=== PATIENT | female | born 1950 | race Caucasian/White ===

== ENCOUNTER 2016-10-14 19:17 | Emergency (ER) | payer OTHER, MEDICARE ==
[~2016-10-14] VITALS: Ht 172.7 cm; Wt 129.3 kg
[~2016-10-14 19:17] MED LIST: ENOXAPARIN30 MG/0.3 SC; LEVOTHYROXIN0.175 MG PO; MASON NATURAL325 MG PO; METOPROLOL SUCC50 MG PO; MULTIVITAMIN1 TA1 PO; OMEGA 31000 MG PO; OXYCODONE5 MG PO; OXYCONTIN30 MG PO; SENNA PLUS 50 M1 TAB PO; TIZANIDINE HCL4 MG PO; TIZANIDINE4 MG; TYLENOL325 MG PO; ZOFRAN ODT4 MG PO
[2016-10-14 19:48] VITALS: BP 159/87
[2016-10-14 20:21] LABS: ABSOLUTE BASOPHIL COUNT 0.1 /CUMM (0.0-0.2); ABSOLUTE EOSINOPHIL COUNT 0.1 /CUMM (0.0-0.7); ABSOLUTE GRANULOCYTE CT 5.9 /CUMM (1.4-6.5); ABSOLUTE LYMPH COUNT 2.5 /CUMM (1.2-3.4); ABSOLUTE MONOCYTE COUNT 0.7 /CUMM (0.10-0.60); BASOPHIL % 0.7 % (0.0-2.0); EOSINOPHIL % 1.5 % (0-5); GRANULOCYTE % 63.3 % (42.2-75.2); HEMATOCRIT 40.7 % (37-47); MEAN CORPUSCULAR HGB 26.5 PG (27.0-31.0); MEAN CORPUSCULAR HGB CONC 32.4 G/DL (33.0-37.0); MEAN CORPUSCULAR VOLUME 81.9 FL (81.0-99.0); MEAN PLATELET VOLUME 8.8 FL (7.4-10.4); PLATELET COUNT 292 /CUMM (130-400); RBC DISTRIBUTION WIDTH 15.6 % (11.5-14.5); RED BLOOD CELL CT 4.97 /CUMM (4.20-5.40); WHITE BLOOD CELL COUNT 9.3 /CUMM (4.8-10.8)
--- NOTE | 2016-10-14 21:05 | ED GENERAL ADULT ---
History of Present Illness General Chief Complaint: General Adult Stated Complaint: "SENT IN FOR LOW SODIUM" PER PT Source: patient, family Exam Limitations: no limitations Vital Signs & Intake/Output Vital Signs & Intake/Output Vital Signs Date Time Temp Pulse Resp B/P Pulse O2 O2 Flow FiO2 Ox Delivery Rate 10/14 2099 Room Air 10/15 1947 96.9 90 18 159/87 96 Room Air Allergies Coded Allergies: MDX - Ketoprofen (From ORUDIS) (Severe, GI UPSET 12/16/13) MDX - Aspirin (ASPIRIN) (UNSURE, SINCE A CHILD 12/16/13) MDX - Rofecoxib (Rofecoxib) (Intermediate, GI UPSET 12/16/13) MDX - Meloxicam (From MOBIC) (GI UPSET 12/16/13) MDX - Tramadol (From ULTRAM) (GI UPSET 12/16/13) Reconcile Medications Acetaminophen (Tylenol) 325 MG TABLET 650 TAB PO Q6 UNKNOWN (Reported) Enoxaparin Sodium 30 MG/0.3 ML SYRINGE 30 MG SC BID UNKNOWN (Reported) Ferrous Sulfate 325 MG (65 MG IRON) TABLET 1 TAB PO BID UNKNOWN (Reported) Fish Oil ([place] 3) 1,000 MG SGL 2,000 SGL PO BID SUPPLEMENT (Reported) Levothyroxine Sodium 0.175 MG TAB 0.175 MG PO DAILY THYROID (Reported) Metoprolol Succinate 50 MG TAB.ER.24H 50 MG PO DAILY BP (Reported) Multivitamin2 (Multivitamin) 1 EACH TAB 1 TAB PO DAILY SUPPLEMENT (Reported) Ondansetron (Zofran Odt) 4 MG TAB.RAPDIS 1 TAB PO Q8H PRN NAUSEA OXYCODONE HCL (Oxycontin) 30 MG TAB.ER.12H 1 TAB PO BID PAIN (Reported) Oxycodone Hydrochloride (Oxycodone) 5 MG TAB 5 MG PO Q4P PRN PAIN (Reported) SENNOSIDES/DOCUSATE SODIUM (Senna Plus Tablet) 50 MG/8.6 MG TAB 2 TAB PO BID UNKNOWN (Reported) TIZANIDINE HCL (Tizanidine HCl) 4 MG TABLET 8 MG PO DAILY UNKNOWN (Reported) TIZANIDINE HCL (Tizanidine) 4 MG TABLET UNKNOWN (Reported) Triage Note: PT SENT IN FROM DR LAO OFFICE FOR EXTREMELY LOW SODIUM LEVEL... Triage Nurses Notes Reviewed? yes Onset: Abrupt Timing: single episode today Injury Environment: neighbor's No Modifying Factors: none Associated Symptoms: NONE HPI: Patient was called by Britney Qureshi DO who was on-call for her primary care doctor this evening and told to come to the hospital immediately. She had outpatient blood work done today in expectation of her primary care doctor's visit in a few days. They told her that the sodium was low. She denies any symptoms. No nausea vomiting diarrhea. No weakness or confusion. Past History Travel History Traveled to [place] past 21 day No Medical History Any Pertinent Medical History? see below for history Cardiovascular: hypertension, HLD Musculoskeletal: disk herniation, fracture, TOTAL KNEE REPLACE Endocrine: hypothyroidism Surgical History Surgical History: non-contributory Psychosocial History What is your primary language Romansh Tobacco Use: Never used Family History Hx Contributory? No Review of Systems Review of Systems Constitutional: Denies: chills, fever, malaise, weakness. EENTM: Reports: no symptoms. Respiratory: Denies: cough, short of breath, sputum production. Cardiovascular: Denies: chest pain, palpitations. GI: Denies: abdominal pain, diarrhea, nausea, vomiting. Genitourinary: Denies: discharge, dysuria, frequency, hematuria. Musculoskeletal: Reports: no symptoms. Skin: Reports: no symptoms. Neurological/Psychological: Denies: anxiety, depressed. Hematologic/Endocrine: Denies: bruising, bleeding, polyuria, polydipsia. Immunologic/Allergic: Denies: splenectomy. All Other Systems: Reviewed and Negative Physical Exam Physical Exam General Appearance: well developed/nourished, alert, awake, NAD Head: atraumatic, normal appearance Eyes: Bilateral: normal appearance, PERRL, EOMI. Ears, Nose, Throat: normal pharynx, normal ENT inspection, hearing grossly normal Neck: normal inspection, supple, full range of motion Respiratory: normal breath sounds, chest non-tender, no respiratory distress Cardiovascular: regular rate/rhythm, normal peripheral pulses Peripheral Pulses: 2+ radial (R), 2+ radial (L) Gastrointestinal: normal bowel sounds, soft, non-tender Back: normal inspection Extremities: normal inspection, normal capillary refill, normal range of motion, no edema Neurologic/Psych: no motor/sensory deficits, awake, alert, oriented x 3 Skin: intact, normal color, warm/dry Core Measures ACS in differential dx? No CVA/TIA Diagnosis: No Severe Sepsis Present: No Septic Shock Present: No Progress Differential Diagnoses I considered the following diagnoses in my evaluation of the patient: [ LABARATORY ERROR, RENAL FAILURE, ] Plan of Care: Orders Procedure Date/time Status Add-on Test (ER Only) 10/15 2047 Active URINE LYTES, SPOT 10/15 2047 Active URINALYSIS 10/15 2047 Active EKG 10/15 2047 Active THYROID STIMULATING HORMONE 10/14 2006 Active SERUM OSMOLALITY 10/14 2006 Active COMPREHENSIVE METABOLIC PANEL 10/14 1948 Active CBC WITHOUT DIFFERENTIAL 10/14 1948 Complete Laboratory Tests 10/14/162006: Anion Gap 11, Estimated GFR > 60, BUN/Creatinine Ratio 28.6 H, Glucose 111 H, Serum Osmolality Pending, Calcium 9.9, Total Bilirubin 0.5, AST 25, ALT 38, Alkaline Phosphatase 113, Total Protein 7.6, Albumin 4.4, Globulin 3.2, Albumin/ Globulin Ratio 1.4, TSH Pending, CBC w Diff NO MAN DIFF REQ, RBC 4.97, MCV 81.9, MCH 26.5 L, RDW 15.6 H, MPV 8.8, Gran % 63.3, Lymphocytes % 26.4, Monocytes % 8.1, Eosinophils % 1.5, Basophils % 0.7, Absolute Granulocytes 5.9, Absolute Lymphocytes 2.5, Absolute Monocytes 0.7 H, Absolute Eosinophils 0.1, Absolute Basophils 0.1, PUBS MCHC 32.4 L Repeat labs showed normal calcium which is consistent with patient's presentation. She'll follow up with Dr. bentley. 9:13 PM GOT CALL FROM LAB. EARLIER SPECIMEN RUN ON OTHER MACHINE AND SODIUM WAS 137. (KAREN CHAVEZ,[place]) Initial ED EKG: none, NSR Departure Departure Time of Disposition: 2109 Disposition: HOME OR SELF CARE Condition: Stable Clinical Impression Primary Impression: Encounter for laboratory test Referrals: TASHIA CHAVEZ,Lucy NICHOLSON (PCP/Family) Additional Instructions: Follow-up with your routine doctor's visit. Departure Forms: Customer Survey General Discharge Information Critical Care Note Critical Care Note Critical Care Time: non-applicable
== END 2016-10-14 21:30 ==
LOC: ERH 19:17
PROVIDERS: Emergency Medicine
DX: E87.1 Hypo-osmolality and hyponatremia (principal)
CPT/HCPCS: 84133; 84300; 82570